=== PATIENT | female | born 1960 | race Caucasian/White ===

== ENCOUNTER → 2018-08-21 14:17 | Outpatient (CLI) | payer BC, SELFPAY ==
[2018-08-21 15:26] LABS: Basophils # 0.1 K/mm3 (0-0.2); Basophils % 0.8 % (0.1-2.0); Eosinophils # 0.3 K/mm3 (0.0-0.4); Eosinophils % 3.9 % (0.1-12.0); Hematocrit 42.6 % (37.0-47.0); Hemoglobin 13.8 g/dL (12.2-16.2); Lymphocytes # 2.8 K/mm3 (0.7-4.5); Lymphocytes % 42.1 % (10-50); Mean Corpuscular HGB Conc 32.3 g/dL (31.8-35.4); Mean Corpuscular Hemoglobin 30.3 pg (27.0-31.2); Mean Corpuscular Volume 93.6 fl (81-99); Mean Platelet Volume 7.3 fl (7.4-10.4); Monocytes # 0.5 K/mm3 (0.1-1.0); Monocytes % 6.7 % (1.7-9.3); Neutrophils # 3.1 K/mm3 (1.8-7.8); Neutrophils % 46.5 % (37.0-80.0); Platelet Count 445 K/mm3 (142-424); Red Blood Count 4.55 M/mm3 (4.20-5.40); Red Cell Distribution Width 12.7 % (11.5-17.5); White Blood Count 6.7 K/mm3 (4.8-10.8)
[2018-08-21 16:41] LABS: Alanine Aminotransferase 46 U/L (12-78); Albumin Level 3.7 gm/dL (3.4-5.0); Alkaline Phosphatase 104 U/L (46-116); Anion Gap 12.6 mEq/L (5-15); Aspartate Amino Transferase 16 U/L (15-37); Bilirubin,Total 0.2 mg/dL (0.2-1.0); Blood Urea Nitrogen 12 mg/dL (7-18); Calcium 9.6 mg/dL (8.5-10.1); Carbon Dioxide 29 mmol/L (21.0-32.0); Chloride 105 mmol/L (98-107); Chol/HDL Ratio 2.5 (1-3.5); Cholesterol 212 mg/dL (140-200); Estimated Glomerular Filt Rate 86 ml/min (>60); Free T4 (Free Thyroxine) 0.95 ng/dl (0.76-1.46); GFR (African American) 104 ML/MIN (>60); Globulin 3.6 gm/dl (1.3-3.2); Glucose 97 mg/dL (74-106); HDL Cholesterol 85 mg/dL (29-89); LDL Cholesterol 111 mg/dL (0-130); Potassium 4.6 mmoL/L (3.5-5.1); Sodium 142 mmol/L (136-145); Thyroid Stimulating Hormone 2.16 uIU/ml (0.358-3.740); Total Protein,Serum 7.3 gm/dL (6.4-8.2); Triglycerides 82 mg/dL (30-200); VLDL Cholesterol 16 mg/dL (0-40)
[2018-08-23 10:53] LABS: Vitamin D 25 Hydroxy 17.2 ng/mL (30.0-100.0)
== END ==
PROVIDERS: Visit Provider Emergency Medicine
DX: R53.83 Other fatigue (principal)
CPT/HCPCS: 80053; 80061; 82652; 84439; 84443; 85025

== ENCOUNTER 2020-05-26 15:58 | Emergency (ER) | payer BC, SELFPAY ==
[2020-05-26 16:20] VITALS: PULSE 79; RESP 18; O2SAT 100; BMI 27.4
--- NOTE | 2020-05-26 16:38 | HMH.EDUTC ---
[facility] [place] Disposition Clinical Impression: Exposure to COVID-19 virus Disposition: Home, Self-Care Condition on Discharge: Good Instructions: Preventing the Spread of Coronavirus Discharge Instructions Additional Instructions: Drink plenty of fluids. Take tylenol for pain or fever. Return if you begin to have difficulty breathing. Follow up with your regular doctor. GO TO THE ER FOR ANY WORSENING SYMPTOMS Referrals: Stephane Ardon PA [Primary Care Provider] - Time of Disposition: 16:39 Medical Decision Making - Medical Records Medical records reviewed: No: I reviewed the patient's medical records. - Raghavendra Inquiry Pt receiving controlled substance: No Vital Signs: 05/26/20 16:20 05/26/20 16:51 Temperature 98.1 F Temperature Source Oral Pulse Rate 79 Pulse Rate [Radial] 79 Respiratory Rate 18 18 Blood Pressure 118/78 Blood Pressure Source Automatic Cuff Blood Pressure Position Sitting 02 Sat by Pulse Oximetry 100 Oxygen Delivery Method Room Air Room Air Orders (Tests/Meds): ORDERS Category Date Time Status Covid-19 Nasal PCR ([facility]) Routine Lab 05/26/20 16:[address] [facility] [place] HPI - General Stated complaint: COVID TEST Time Seen by Provider: 05/26/20 16:38 Mode of Arrival: Ambulatory Source of Information: Patient Limitations: No Limitations Description of Symptoms (Recalled from Triage Doc. 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 She denies any symptoms, but she needs to have a test. - Related Data Home Medications Medication Instructions Recorded Confirmed Tamoxifen Citrate [Nolvadex 10mg 10 mg PO DAILY 08/13/18 01/09/19 Tablet] Previous Rx's Medication Instructions Recorded cyclobenzaprine 10 mg tablet 10 mg PO HS #30 tab 08/21/18 ibuprofen 800 mg tablet 800 mg PO TID #90 tab 08/21/18 atorvastatin 10 mg tablet 10 mg PO QHS #90 tab 08/28/18 cholecalciferol (vitamin D3) 25 1,000 unit PO DAILY 90 Days #90 cap 08/28/18 mcg (1,000 unit) capsule ergocalciferol (vitamin D2) 1,250 50,000 unit PO QWEEK 90 Days #14 08/28/18 mcg (50,000 unit) capsule cap phentermine 37.5 mg tablet 37.5 mg PO DAILY #30 tab 11/27/18 Allergies Allergy/AdvReac Type Severity Reaction Status Date / Time acetaminophen [From Lortab] Allergy Intermediate Hives Verified 01/09/19 09:01 butorphanol [From Stadol] Allergy Intermediate Hives Verified 01/09/19 09:01 diphenhydramine Allergy Intermediate Hives Verified 01/09/19 09:01 [From Benadryl] hydrocodone [From Lortab] Allergy Intermediate Hives Verified 01/09/19 09:01 meperidine [From Demerol] Allergy Intermediate Hives Verified 01/09/19 09:01 Opioids - Morphine Analogues Allergy Intermediate Hives Verified 01/09/19 09:01 oxycodone [From Percocet] Allergy Intermediate Hives Verified 01/09/19 09:01 - Worker's Comp Is this a Worker's Comp case?: No [facility] History - Hepatitis A Screen Drug use history?: No High risk sexual behaviors?: No History of sexually transmitted infection?: No Currently employed?: No Childcare worker?: No Do you have indoor plumbing?: Yes Do you have electricity?: Yes Attestation statement:: This patient has been screened for Hepatitis A risk factors. I have reviewed the patient's past medical history: Yes Medical History: Reports:: Cancer Denies:: Diabetes Mellitus Type 1, Diabetes Mellitus Type 2 Other Surgeries: Yes: Cancer Surgery, Other Amputation: No Fractures: No - Social History Smoking Status: Former smoker Alcohol Intake: never Alcohol Intake Frequency:: holidays/special occasions only Substance Use Type: denies use Occupational Status: employed Housing: house Family H
[2020-05-26 16:51] VITALS: BP 118/78; PULSE 79; RESP 18; TEMP 36.7; O2SAT 100
--- NOTE | 2020-05-27 15:05 | PC.NURSE ---
pt notified of covid test results.
== END 2020-05-26 16:52 | disposition home or self-care (01) ==
PROVIDERS: Emergency Provider Nurse Practitioner Family; PCP Physician Assistant
DX: U07.1 COVID-19 (principal); E78.5 Hyperlipidemia, unspecified; Z85.3 Personal history of malignant neoplasm of breast; Z88.5 Allergy status to narcotic agent
CPT/HCPCS: 99201; U0003